=== PATIENT | male | born 1980 | race Caucasian/White ===

== ENCOUNTER 2017-03-25 16:48 | Emergency (ER) | payer OTHER ==
--- NOTE | 2017-03-25 17:13 | EDPHY ---
H & P Time Seen by Provider: 03/25/17 17:06 HPI/ROS: CHIEF COMPLAINT: DVT HISTORY OF PRESENT ILLNESS: This patient is a healthy 36 year old male s/p arthroscopy 03/23/16 presenting with a left-sided DVT diagnosed by ultrasound shortly DIRECTOR CLINICAL RESEARCH. Left knee arthroscopy was outpatient with Dr. Somers. Onset of throbbing moderate pain in the left calf today. He called his surgeon's office and they recommended US to r /o DVT. US positive for calf vein DVT. He denies any known family history of clotting disorders. No chest pain, shortness of breath, other associated symptoms. REVIEW OF SYSTEMS: A 10 point review of systems was performed and is negative with the exception of the elements mentioned in the history of present illness. Past Medical/Surgical History: Left knee arthroscopy. Social History: . at bedside. Lives in [place]. Nonsmoker. Smoking Status: Never smoked Physical Exam: General Appearance: Alert, pleasant Eyes: Pupils equal and round, no conjunctival pallor ENT, Mouth: Mucous membranes moist Neck: Normal inspection Respiratory: normal RR, Lungs are clear to auscultation Cardiovascular: Regular rate and rhythm Gastrointestinal: Abdomen is soft and non-tender Neurological: A&O, nonfocal exam Skin: Warm and dry Extremities: LLE- left calf swelling and tenderness, well-healing surgical wounds to left knee, joint effusion present, no redness or drainage Vascular: pedal pulses 2+ Psychiatric: Mood and affect normal Constitutional: Initial Vital Signs Temperature (C) 36.8 C 03/25/17 16:50 Heart Rate 65 03/25/17 16:50 Respiratory Rate 16 03/25/17 16:50 Blood Pressure 136/88 H 03/25/17 16:50 O2 Sat (%) 93 03/25/17 16:50 O2 Delivery Mode Room Air Allergies/Adverse Reactions: No Known Allergies Allergy (Unverified 02/01/16 12:21) Home Medications: Medication Instructions Recorded Hydrocodone/Acetaminophen [[place] 1 - 2 tab PO HS PRN #8 tab 02/01/16 5/325 (*)] Miralax 17 gm (*) 03/25/17 Rivaroxaban [Xarelto 15mg (*)] 15 mg PO BID #41 tab 03/25/17 Medical Decision Making ED Course/Re-evaluation: 36 y/o male s/p arthroscopy 03/23/16 presents with LLE DVT. Exam reveals well- healing surgical site to left knee, left calf swelling. I discussed that he will need to be on anticoagulants and reviewed the risks of and precautions regarding Xarelto. He consents to treatment. Plan to consult with Dr. Somers's office. 17:27 Spoke with Mary Basurto at Dr. Somers' office. Will f/u in office. Differential Diagnosis: includes though not limited to cellulitis, joint infection, PE - Data Points Laboratory Results: Laboratory Results 03/25/17 17:48 03/25/17 17:48 Medications Given: Discontinued Medications Rivaroxaban (Xarelto) 15 mg PO EDNOW ONE Stop: 03/25/17 18:50 Last Admin: 03/25/17 18:59 Dose: 15 mg Departure - Departure Disposition: Home, Routine, Self-Care Clinical Impression: DVT (deep venous thrombosis) Qualifiers: DVT location: lower extremity Affected thrombotic vein of extremity: unspecified lower extremity distal vein Chronicity: acute Laterality: left Qualified Code(s): I82.4Z2 - Acute embolism and thrombosis of unspecified deep veins of left distal lower extremity Condition: Good Instructions: Apixaban (By mouth), Deep Vein Thrombosis (ED) Additional Instructions: You will be on Xarelto 15mg twice a day for 21 days. After that, you will take Xarelto 20mg once daily. Follow up with Dr. Calvillo for continued management of your blood thinning medication regimen. Follow up with Dr. Somers as scheduled. Return to the emergency department if you develop chest pain, shortness of breath, lightheadedness, severe headache, or other worsening of condition. Referrals: Damien Somers MD [Medical Doctor] - As per Instructions Kristy Calvillo MD [Retired Resigned] - As per Instructions Prescriptions: Rivaroxaban [Xarelto 15mg (*)] 15 mg PO BID #41 tab Report Scribed for: Abbi Paul Report Scribed by: Karen Burgos Date of Report: 03/25/17 Time of Report: 17:13 Physician Review and Approval Statement: 03/25/17 17:13 Portions of this note were transcribed by a medical assistant float. I personally performed a history, physical exam, medical decision making, and confirmed accuracy of information the transcribed note.
[2017-03-25 17:40] VITALS: RESP 16
[2017-03-25 18:15] LABS: PLATELET COUNT 252 10^3/uL (150-400)
[2017-03-25] MEDS ORDERED: RIVAROXABAN 15 MG TAB PO ONE (18:49)
[2017-03-25 18:57] LABS: INR 1.04 (0.83-1.16); PROTIME(PATIENT) 13.8 SEC (12.0-15.0)
[2017-03-25 19:08] VITALS: BP 130/90; PULSE 67; TEMP 97.5; O2SAT 94
== END 2017-03-25 19:08 | disposition home or self-care (01) ==
LOC: EDSTATUS 16:48
DX: I82.4Z2 Acute embolism and thrombosis of unspecified deep veins of left distal lower extremity (principal); Z79.01 Long term (current) use of anticoagulants
CPT/HCPCS: 85300-90; 85303-90; 85306-90; 86147-90